=== PATIENT | male | born 1975 | race Caucasian/White ===

== ENCOUNTER 2021-06-17 11:06 | Emergency (ER) | payer OTHER ==
[2021-06-17 11:59] LABS: BILIRUBIN NEGATIVE (NEGATIVE); BLOOD NEGATIVE Ery/uL (NEGATIVE); CLARITY CLEAR (CLEAR); COLOR YELLOW (YELLOW); GLUCOSE (U) NORMAL (NORMAL); LEUKOCYTES NEGATIVE Leu/uL (NEGATIVE); NITRITE NEGATIVE (NEGATIVE); PROTEIN NEGATIVE (NEGATIVE); UROBILINOGEN 0.2 mg/dL (0.2-1.0)
[2021-06-17 12:21] LABS: BASOPHIL 0.3 % (0-2); EOSINOPHIL 0.8 % (0-5); HCT 52.9 % (42.0-52.0); LYMPHOCYTE 31.3 % (15-48); MCH 31.2 pg (25.0-31.0); MCHC 35.5 g/dL (32.0-36.0); MCV 87.7 fL (78.0-100.0); MONOCYTE 8.5 % (0-12); MPV 8.3 fL (6.0-9.5); NEUTROPHIL 58.6 % (41-80); NRBC 0; PLT 362 K/uL (150-400); RBC 6.03 M/uL (4.70-6.00); RDW 11.9 % (11.5-14.0); WBC 13.2 K/uL (4.0-10.5)
[2021-06-17 12:29] LABS: HGB 18.8 g/dl (13.2-18.0)
[2021-06-17 13:00] LABS: ALBUMIN 2.4 g/dL (3.4-5.0); BILIRUBIN - TOTAL 0.4 mg/dL (0.2-1.0); BUN/CREAT RATIO (CALC) 11.6 RATIO; CREATININE 1.12 mg/dL (0.67-1.17); GLOBULIN (CALCULATION) 2.1 g/dL; POTASSIUM 3.9 mmol/L (3.5-5.1); TOTAL PROTEIN 4.5 g/dL (6.4-8.2)
[2021-06-17] MEDS ORDERED: METRONIDAZOLE500 MG PO (13:52)
[2021-06-17] MEDS ORDERED: PHENERGAN25 M1 PO (13:52)
[2021-06-17] MEDS ORDERED: BENTYL10 MG PO (13:52)
== END 2021-06-17 13:53 | disposition home or self-care (01) ==
LOC: FER 11:06
PROVIDERS: Emergency Medicine
DX: K52.9 Noninfective gastroenteritis and colitis, unspecified (principal); F17.200 Nicotine dependence, unspecified, uncomplicated
CPT/HCPCS: 36415; 80053; 81003; 83605; 85025; J2405; J2765; J7030